=== PATIENT | male | born 1980 | race African-American/Black ===

== ENCOUNTER 2016-06-13 16:14 | Emergency (ER) | payer OTHER ==
[~2016-06-13] VITALS: Wt 127.0 kg
[~2016-06-13 16:14] MED LIST: ATARAX,VISTARIL50 MG PO; CATAFLAM50 MG PO; CLEOCIN HCL150 MG PO; CLEOCIN150 MG PO; DAYPRO600 M1 PO; EPIPEN 2-PAK1 MG/ML MR; FLAGYL500 MG PO; FLEXERIL10 MG PO; FLEXERIL5 MG PO; FLOMAX0.4 MG PO; HYDROCODONE BIT1 T11 PO; IBU800 MG PO; LEVEMIR100 U/ML SC; LISINOPRIL40 MG PO; LOMOTIL 0.025 M1 TA1 PO; LOMOTIL 0.025 M1 TAB PO; MACROBID100 M1 PO; MOTRIN800 MG PO; Motrin,Rufen800 MG PO; NAPROSYN500 MG PO; NKHM; NORCO 325 MG-51 TAB PO; PARAFON FORTE500 MG PO; PENICILLIN VK500 MG PO; PERCOCET 325 MG1 TA2 PO; PREDNISONE20 M1 PO; PRILOSEC20 MG PO; ROBAXIN750 MG PO; ROBITUSSIN AC 110 ML PO; ROBITUSSIN DM 105 ML PO; TORADOL10 MG PO; TRAMADOL HCL50 MG PO; TYLENOL W/CODEI1 TA2 PO; ULTRAM50 MG PO; VIBRAMYCIN100 MG PO; VICODIN 5/500 505 MG PO; VICODIN 500 MG-1 TAB PO; VICODIN ES 7501 TAB PO; ZOFRAN ODT4 MG SL; ZOFRAN4 MG PO
[2016-06-13 16:24] VITALS: BP 136/88
[2016-06-13] MEDS ORDERED: ZITHROMAX100 MG/5 M PO (18:04)
[2016-06-13] MEDS ORDERED: TRAMADOL HCL50 MG PO (18:08)
[2016-06-13] MEDS ORDERED: Motrin,Rufen800 MG PO (18:12)
== END 2016-06-13 18:16 | disposition home or self-care (01) ==
LOC: ED 16:14
DX: S33.5XXA Sprain of ligaments of lumbar spine, initial encounter (principal); R07.81 Pleurodynia; F17.200 Nicotine dependence, unspecified, uncomplicated; Z88.1 Allergy status to other antibiotic agents; Z88.6 Allergy status to analgesic agent; W18.39XA Other fall on same level, initial encounter; Y93.9 Activity, unspecified; Y92.9 Unspecified place or not applicable; Y99.9 Unspecified external cause status

== ENCOUNTER 2016-12-19 16:36 | Emergency (ER) | payer OTHER ==
[~2016-12-19] VITALS: Ht 182.8 cm; Wt 122.5 kg
[~2016-12-19 16:36] MED LIST changes: +ZITHROMAX100 MG/5 M PO
[2016-12-19 16:50] VITALS: BP 148/85
[2016-12-19] MEDS ORDERED: SUBOXONE 8 MG-1 EACH SL (16:52)
[2016-12-19] MEDS ORDERED: CLINDAMYCIN HC300 MG PO (17:16)
[2016-12-19] MEDS ORDERED: NAPROSYN500 MG PO (17:16)
== END 2016-12-19 17:44 | disposition home or self-care (01) ==
LOC: ED 16:36
DX: L02.415 Cutaneous abscess of right lower limb (principal); Z88.1 Allergy status to other antibiotic agents; Z88.6 Allergy status to analgesic agent; Z90.49 Acquired absence of other specified parts of digestive tract

== ENCOUNTER 2017-04-11 19:49 | Emergency (ER) | payer OTHER ==
[~2017-04-11] VITALS: Ht 180.3 cm; Wt 136.1 kg
[~2017-04-11 19:49] MED LIST changes: +CLINDAMYCIN HC300 MG PO; +SUBOXONE 8 MG-1 EACH SL
[2017-04-11 19:53] VITALS: BP 165/102
[2017-04-11] MEDS ORDERED: NAPROSYN500 MG PO (21:40)
== END 2017-04-11 21:47 | disposition home or self-care (01) ==
LOC: ED 19:49
DX: R10.12 Left upper quadrant pain (principal); F17.200 Nicotine dependence, unspecified, uncomplicated; Z88.0 Allergy status to penicillin; Z88.6 Allergy status to analgesic agent; Z88.8 Allergy status to other drugs, medicaments and biological substances; Z79.899 Other long term (current) drug therapy

== ENCOUNTER 2017-10-30 17:32 | Emergency (ER) | payer OTHER ==
[2017-10-30 17:36] VITALS: BP 168/97
[2017-10-30] MEDS ORDERED: PREDNISONE10 MG PO (17:52)
== END 2017-10-30 17:56 | disposition home or self-care (01) ==
LOC: ED 17:32
DX: L23.7 Allergic contact dermatitis due to plants, except food (principal); Z88.1 Allergy status to other antibiotic agents; Z88.5 Allergy status to narcotic agent

== ENCOUNTER 2017-12-07 15:30 | Emergency (ER) | payer OTHER ==
[~2017-12-07] VITALS: Ht 185.4 cm; Wt 136.1 kg
[~2017-12-07 15:30] MED LIST changes: +PREDNISONE10 MG PO
[2017-12-07 15:33] VITALS: BP 152/95
== END 2017-12-07 19:22 | disposition home or self-care (01) ==
LOC: ED 15:30
DX: M54.5 Low back pain (principal); M79.641 Pain in right hand; Z90.49 Acquired absence of other specified parts of digestive tract; Z98.890 Other specified postprocedural states; Z79.899 Other long term (current) drug therapy; Z88.1 Allergy status to other antibiotic agents; Z88.5 Allergy status to narcotic agent

== ENCOUNTER 2017-12-12 21:11 | Emergency (ER) | payer OTHER ==
[~2017-12-12] VITALS: Ht 185.4 cm; Wt 136.1 kg
[2017-12-12 21:11] VITALS: BP 170/90
[2017-12-12] MEDS ORDERED: Motrin,Rufen800 MG PO (21:39)
[2017-12-12] MEDS ORDERED: SILVADENE,SSD C50 GM T (22:04)
== END 2017-12-12 22:40 | disposition home or self-care (01) ==
LOC: ED 21:11
DX: T21.02XA Burn of unspecified degree of abdominal wall, initial encounter (principal); Z79.899 Other long term (current) drug therapy; Z88.1 Allergy status to other antibiotic agents; Z88.6 Allergy status to analgesic agent; X16.XXXA Contact with hot heating appliances, radiators and pipes, initial encounter; Y93.89 Activity, other specified; Y92.89 Other specified places as the place of occurrence of the external cause; Y99.8 Other external cause status

== ENCOUNTER 2017-12-19 22:09 | Emergency (ER) | payer OTHER ==
[~2017-12-19] VITALS: Wt 136.1 kg
[~2017-12-19 22:09] MED LIST changes: +SILVADENE,SSD C50 GM T
[2017-12-19 22:18] VITALS: BP 151/95
== END 2017-12-19 23:32 | disposition home or self-care (01) ==
LOC: ED 22:09
DX: S61.512A Laceration without foreign body of left wrist, initial encounter (principal); Z90.49 Acquired absence of other specified parts of digestive tract; Z79.899 Other long term (current) drug therapy; Z88.1 Allergy status to other antibiotic agents; Z88.5 Allergy status to narcotic agent; W25.XXXA Contact with sharp glass, initial encounter; Y93.89 Activity, other specified; Y92.69 Other specified industrial and construction area as the place of occurrence of the external cause; Y99.9 Unspecified external cause status

== ENCOUNTER 2018-02-28 23:47 | Emergency (ER) | payer OTHER ==
[~2018-02-28] VITALS: Ht 182.8 cm; Wt 122.5 kg
[2018-02-28 23:50] VITALS: BP 153/100
[2018-03-01] MEDS ORDERED: Motrin,Rufen800 MG PO (00:24)
== END 2018-03-01 00:40 | disposition home or self-care (01) ==
LOC: ED 23:47
DX: S62.356A Nondisplaced fracture of shaft of fifth metacarpal bone, right hand, initial encounter for closed fracture (principal); Z88.1 Allergy status to other antibiotic agents; Z88.6 Allergy status to analgesic agent; Z79.899 Other long term (current) drug therapy; W01.198A Fall on same level from slipping, tripping and stumbling with subsequent striking against other object, initial encounter; Y93.89 Activity, other specified; Y92.89 Other specified places as the place of occurrence of the external cause; Y99.8 Other external cause status

== ENCOUNTER 2018-03-09 12:27 | Emergency (ER) | payer OTHER ==
[~2018-03-09] VITALS: Ht 185.4 cm; Wt 136.1 kg
[2018-03-09 12:30] VITALS: BP 153/78
[2018-03-09] MEDS ORDERED: NAPROSYN500 MG PO (12:32)
== END 2018-03-09 13:00 | disposition home or self-care (01) ==
LOC: ED 12:27
DX: S62.326D Displaced fracture of shaft of fifth metacarpal bone, right hand, subsequent encounter for fracture with routine healing (principal); R03.0 Elevated blood-pressure reading, without diagnosis of hypertension; Z90.49 Acquired absence of other specified parts of digestive tract; Z79.899 Other long term (current) drug therapy; Z88.1 Allergy status to other antibiotic agents; Z88.5 Allergy status to narcotic agent; X58.XXXD Exposure to other specified factors, subsequent encounter

== ENCOUNTER 2018-09-18 21:35 | Inpatient (IN) | payer OTHER ==
[~2018-09-18] VITALS: Ht 182.8 cm; Wt 140.7 kg
[2018-09-18 21:37] VITALS: BP 134/89
--- NOTE | 2018-09-18 23:00 | NUR ---
unable to establish iv access
[2018-09-18 23:16] LABS: BASO % 0.3 % (0.0-1.0); EOS % 0.3 % (1.0-4.0); HEMATOCRIT 40.3 % (42.0-52.0); HEMOGLOBIN 13.7 g/dl (14.0-18.0); LYMPH # 2.1 10*3/uL (1.3-4.4); LYMPH % 29.9 % (27.0-41.0); MEAN CELL VOLUME 85.4 fl (80.0-94.0); MEAN PLATELET VOLUME 12.8 fl (9.6-12.3); MONO # 0.5 10*3/uL (0.1-1.0); MONO % 6.4 % (3.0-9.0); NEUT # 4.4 10*3/uL (2.3-7.9); NEUT % 62.8 % (47.0-73.0); RED BLOOD COUNT 4.72 10*6/uL (4.50-5.90); RED CELL DISTRI WIDTH 12.2 % (0-14.5)
[2018-09-18 23:19] LABS: BILIRUBIN NEGATIVE (NEGATIVE); BLOOD TRACE-INTACT (NEGATIVE); CLARITY CLEAR (CLEAR); COLOR YELLOW (YELLOW); GLUCOSE 3+ (NEGATIVE); KETONE 1+ (NEGATIVE); LEUKO ESTERASE NEGATIVE (NEGATIVE); NITRITE NEGATIVE (NEGATIVE); PH 5.5 (5.0-9.0); SPECIFIC GRAVITY 1.015 (1.005-1.030); UROBILINOGEN 0.2 E.U./dl (0.2-1.0)
[2018-09-18 23:32] LABS: ALBUMIN 3.9 gm/dl (3.1-4.5); ALKALINE PHOSPHATASE 66 U/L (45-117); BUN 17 mg/dl (7-24); CHLORIDE 100 mmol/L (98-107); CREATININE 1.13 mg/dL (0.70-1.30); LIPASE 179 U/L (73-393); POTASSIUM 4.6 mmol/L (3.5-5.1); SGOT/AST 40 IU/L (3-35); SGPT/ALT 79 U/L (12-78); SODIUM 135 mmol/L (136-145); TOTAL PROTEIN 9.2 gm/dL (6.4-8.2)
[2018-09-18 23:32] LABS: BACTERIA TRACE; EPITHELIAL CELLS 25-30; RBC TNTC rbc/hpf (0-2); WBC 0-2 wbc/hpf (0-5)
--- NOTE | 2018-09-18 23:41 | NUR ---
CRITICAL 527 GUSTAVO GUERRERO NOTIFIED
[2018-09-18 23:44] LABS: PLATELET COUNT AUTOMATED 119 10*3/uL (130-400)
[2018-09-19 00:59] VITALS: BP 125/51
--- NOTE | 2018-09-19 01:05 | NUR ---
SPOKE WITH ADMITTING DR ABOUT DIFFICULTY IN ESTABLISHING IV ACCESS DUE TO PT HISTORY AND SCARRING TISSUE, DR GAVE PERMISSION FOR PT ADMISSION WITHOUT IV ACCESS
--- NOTE | 2018-09-19 01:12 | NUR ---
EDWINA NICOLE DO ACCEPTING
[2018-09-19 01:20] VITALS: BP 124/62; BP 125/81
--- NOTE | 2018-09-19 01:52 | NUR ---
MED REC UP TO DATE PER PT RECALL. PATIENT A&OX3.
--- NOTE | 2018-09-19 01:57 | NUR ---
SPOKE TO REGARDING PATIENT'S BSG 442 FOLLOWING 15 UNITS SC INSULIN GIVEN IN ER. DISCUSSED ORDER FOR BSG CHECKS Q2H AND INSULIN COVERAGE PER SLIDING SCALE ORDERED ACHS. INSTRUCTED TO CHANGE INSULIN ORDER TO Q2H TO MATCH BSG CHECKS. ALSO NOTIFIED THAT 24 GAUGE IV INITIATED TO L FOREARM BY RN. DISCUSSED 1L BOLUS NOT GIVEN IN ER BECAUSE IV ACCESS COULD NOT BE OBTAINED. NEW ORDER RECEIVED FOR NS @ 100 ML/HR X1 BAG.
--- NOTE | 2018-09-19 02:38 | NUR ---
IV FLUIDS INITIATED AT 100 ML/HR PER ORDER. 14 UNITS OF SQ INSULIN ALSO GIVEN FOR BSG OF 442. PATIENT DENIES ANY NEW/WORSENING SYMPTOMS. WILL MONITOR. CALL LIGHT LEFT IN REACH.
[2018-09-19 05:56] LABS: BASO % 0.3 % (0.0-1.0); EOS % 0.6 % (1.0-4.0); HEMATOCRIT 41.3 % (42.0-52.0); HEMOGLOBIN 13.9 g/dl (14.0-18.0); LYMPH # 2.5 10*3/uL (1.3-4.4); LYMPH % 39.9 % (27.0-41.0); MEAN CELL VOLUME 87.1 fl (80.0-94.0); MEAN CORPUSCULAR HGB 29.3 pg (27.0-31.0); MEAN CORPUSCULAR HGB CONC 33.7 g/dl (33.0-37.0); MEAN PLATELET VOLUME 13.3 fl (9.6-12.3); MONO # 0.4 10*3/uL (0.1-1.0); MONO % 6.9 % (3.0-9.0); NEUT # 3.2 10*3/uL (2.3-7.9); NEUT % 52.1 % (47.0-73.0); PLATELET COUNT AUTOMATED 123 10*3/uL (130-400); RED BLOOD COUNT 4.74 10*6/uL (4.50-5.90); RED CELL DISTRI WIDTH 12.3 % (0-14.5); WHITE BLOOD COUNT 6.2 10*3/uL (4.8-10.8)
[2018-09-19 06:31] LABS: ALBUMIN 3.5 gm/dl (3.1-4.5); BUN 17 mg/dl (7-24); CHLORIDE 102 mmol/L (98-107); CHOLESTEROL 98 mg/dL (<200); CREATININE 0.92 mg/dL (0.70-1.30); PHOSPHOROUS 3.9 mg/dL (2.5-4.9); SGOT/AST 34 IU/L (3-35); SGPT/ALT 74 U/L (12-78); TRIGLYCERIDES 143 mg/dl (<150); VLDL CHOLESTEROL 29 mg/dL (6-40)
[2018-09-19 06:35] LABS: VITAMIN D, 25-HYDROXY 13.4 ng/mL (30-100)
[2018-09-19 06:39] LABS: ALKALINE PHOSPHATASE 62 U/L (45-117); HDL CHOLESTEROL 23 mg/dl (40-60); LDL CHOLESTEROL 46 mg/dL (9-159); TOTAL PROTEIN 8.6 gm/dL (6.4-8.2)
[2018-09-19 06:44] LABS: SODIUM 138 mmol/L (136-145)
[2018-09-19 06:45] LABS: POTASSIUM 3.6 mmol/L (3.5-5.1)
[2018-09-19 08:00] VITALS: BP 124/62
--- NOTE | 2018-09-19 08:13 | NUR ---
NOTIFIED REGARDING 8AM BSG. OKAY TO CHANGE BLOOD SUGAR CHECKS TO ACHS.
--- NOTE | 2018-09-19 09:00 | NUR ---
Is Manager in to talk to patient. Patient states lives at home with and family. There are few steps in the home. Physician: none [facility] Home health services: none Patient's level of ADLs: INDEPENDENT Patient has working utilities: all working DME: none Follow-up physician's appointment after d/c: will be made by hospitalist nurse director upon discharge Does patient want to access PORTAL?: no Discharge plan discussed with patient, present, patient lives at home with and family, he is independent in adls and ambulation, patient states he will be going home when able, discussed with him not having a family doctor and educated him that a list would be provided for him to choose a doctor to follow up with, patient verbalized understand, patient and deny any other home needs. ANNA HOWELL
--- NOTE | 2018-09-19 09:46 | NUR ---
PT C/O SLIGHTLY BLURRED VISION. BSG CHECKED AT THIS TIME. BLOOD SUGAR 182. VSS. WILL CONTINUE TO MONITOR.
--- NOTE | 2018-09-19 11:27 | NUR ---
PT GIVEN PO MOTRIN PER PRN ORDER FOR C/O HEADACHE. WILL MONITOR EFFECTIVENESS.
[2018-09-19 12:00] VITALS: BP 124/62
--- NOTE | 2018-09-19 12:30 | NUR ---
MOTRIN EFFECTIVE PER PT.
[2018-09-19 16:00] VITALS: BP 144/74
--- NOTE | 2018-09-19 17:19 | NUR ---
PT MEDICATED WITH PO TYLENOL PER PRN ORDER FOR C/O HEADACHE. WILL MONITOR EFFECTIVENESS.
[2018-09-19 20:00] VITALS: BP 149/75
[2018-09-20] VITALS: BP 121/63
--- NOTE | 2018-09-20 00:45 | NUR ---
PATIENT MEDICATED WITH PRN MOTRIN ORDERED FOR C/O BILATERAL LEG PAIN.
[2018-09-20 08:00] VITALS: BP 137/69
--- NOTE | 2018-09-20 08:19 | NUR ---
NOTIFIED REGARDING REFUSAL OF AM LABS.
--- NOTE | 2018-09-20 08:41 | NUR ---
Spoke with patient and provided an 1800 calorie diabetic diet copy. Encouraged patient to follow the diet and the importance of testing BGs before and after meals. Told patient he can direct any further questions to myself or Selena Francisco RDN,DAQUAN. Esther Lester [facility] Dietetic Student
--- NOTE | 2018-09-20 09:30 | NUR ---
case management visits with patient, aptient denies any needs at this time
[2018-09-20 10:28] LABS: BUN 21 mg/dl (7-24); CHLORIDE 103 mmol/L (98-107); CREATININE 1.14 mg/dL (0.70-1.30); SODIUM 134 mmol/L (136-145)
[2018-09-20 10:29] LABS: POTASSIUM 5.3 mmol/L (3.5-5.1)
[2018-09-20] MEDS ORDERED: Humalog SQ (14:25)
[2018-09-20] MEDS ORDERED: LANTUS SOL100 UNIT/1 SC (14:26)
[2018-09-20] MEDS ORDERED: TEST STRIPS1 EACH MC (14:26)
[2018-09-20] MEDS ORDERED: VITAMIN D32000 UNI1 PO (14:26)
[2018-09-20] MEDS ORDERED: BD ULTRA-FINE1 EAC3 MC (14:26)
[2018-09-20] MEDS ORDERED: ACCU-CHEK FAST1 EACH MC (14:26)
--- NOTE | 2018-09-20 15:19 | NUR ---
SCRIPTS SENT TO PHARMACY AT THIS TIME.
--- NOTE | 2018-09-20 15:59 | NUR ---
Discharge instructions reviewed with patient/family. Patient receptive and verbalizes understanding. Follow-up care arranged. Written instructions given to patient/family. KEEGAN PAGE.
== END 2018-09-20 15:59 | disposition home or self-care (01) | DRG 638 ==
LOC: ED 21:35 → EDHOLD 09-19 00:10 → 4E 09-19 00:10
PROVIDERS: Internal Medicine; Nurse Practitioner Family; Student in an Organized Health Care Education/Training Program; ADMIT Internal Medicine
DX: E11.65 Type 2 diabetes mellitus with hyperglycemia (principal); E87.1 Hypo-osmolality and hyponatremia; Z68.41 Body mass index [BMI] 40.0-44.9, adult; N48.1 Balanitis; E66.01 Morbid (severe) obesity due to excess calories; D69.6 Thrombocytopenia, unspecified; D64.9 Anemia, unspecified; R74.0 Nonspecific elevation of levels of transaminase and lactic acid dehydrogenase [LDH]; F17.210 Nicotine dependence, cigarettes, uncomplicated; R35.8 Other polyuria; E55.9 Vitamin D deficiency, unspecified; Z90.49 Acquired absence of other specified parts of digestive tract; Z82.49 Family history of ischemic heart disease and other diseases of the circulatory system; Z80.0 Family history of malignant neoplasm of digestive organs; Z71.6 Tobacco abuse counseling; Z88.1 Allergy status to other antibiotic agents; Z91.14 Patient's other noncompliance with medication regimen; Z83.3 Family history of diabetes mellitus; Z88.5 Allergy status to narcotic agent; Z79.899 Other long term (current) drug therapy

== ENCOUNTER 2019-02-28 10:09 | Emergency (ER) | payer OTHER ==
[~2019-02-28] VITALS: Ht 182.8 cm; Wt 143.3 kg
[~2019-02-28 10:09] MED LIST changes: +ACCU-CHEK FAST1 EACH MC; +BD ULTRA-FINE1 EAC3 MC; +Humalog SQ; +LANTUS SOL100 UNIT/1 SC; +TEST STRIPS1 EACH MC; +VITAMIN D32000 UNI1 PO
[2019-02-28 10:12] VITALS: BP 160/97
[2019-02-28] MEDS ORDERED: DOXYCYCLINE100 M3 PO (10:42)
[2019-02-28] MEDS ORDERED: IBU800 MG PO (10:42)
[2019-02-28] MEDS ORDERED: ANTIBIOTIC28.4 GM T (10:42)
== END 2019-02-28 10:53 | disposition home or self-care (01) ==
LOC: ED 10:09
DX: L02.511 Cutaneous abscess of right hand (principal); F17.200 Nicotine dependence, unspecified, uncomplicated; Z88.1 Allergy status to other antibiotic agents; Z88.6 Allergy status to analgesic agent; Z79.899 Other long term (current) drug therapy

== ENCOUNTER 2019-11-16 16:36 | Emergency (ER) | payer OTHER ==
[~2019-11-16] VITALS: Ht 185.4 cm; Wt 140.6 kg
[~2019-11-16 16:36] MED LIST changes: +ANTIBIOTIC28.4 GM T; +DOXYCYCLINE100 M3 PO
[2019-11-16 16:44] VITALS: BP 160/103
[2019-11-16] MEDS ORDERED: CLEOCIN HCL150 MG PO (17:25)
[2019-11-16] MEDS ORDERED: IBU800 MG PO (17:25)
== END 2019-11-16 17:56 | disposition home or self-care (01) ==
LOC: ED 16:36
DX: L02.414 Cutaneous abscess of left upper limb (principal); I10 Essential (primary) hypertension; J45.909 Unspecified asthma, uncomplicated; E11.9 Type 2 diabetes mellitus without complications; Z88.0 Allergy status to penicillin; Z88.1 Allergy status to other antibiotic agents; Z79.899 Other long term (current) drug therapy; Z87.891 Personal history of nicotine dependence

== ENCOUNTER 2019-11-18 00:30 | Inpatient (IN) | payer OTHER ==
[~2019-11-18] VITALS: Ht 185.4 cm; Wt 145.8 kg
[2019-11-18 01:26] VITALS: BP 127/72
--- NOTE | 2019-11-18 02:00 | NUR ---
PATIENT ABSCESS I&D DONE BY DR COOL, THIS RN WAS UNABLE TO PHOTO PRIOR TO I&D AND DR COOL STATES HE ALREADY DRESSED THE WOUND AT THIS TIME AND STATES NO PHOTO TO BE TAKEN DO TO WOUND BEING DRESSED AT THIS TIME.
[2019-11-18 02:28] LABS: BASO % 0.2 % (0.0-1.0); EOS % 0.3 % (1.0-4.0); HEMATOCRIT 34.3 % (42.0-52.0); LYMPH # 1.9 10*3/uL (1.3-4.4); MEAN CELL VOLUME 89.6 fl (80.0-94.0); MEAN CORPUSCULAR HGB 29.2 pg (27.0-31.0); MEAN CORPUSCULAR HGB CONC 32.7 g/dl (33.0-37.0); MEAN PLATELET VOLUME 11.6 fl (9.6-12.3); MONO # 0.6 10*3/uL (0.1-1.0); MONO % 9.2 % (3.0-9.0); NEUT # 3.7 10*3/uL (2.3-7.9); NEUT % 60.1 % (47.0-73.0); PLATELET COUNT AUTOMATED 114 10*3/uL (130-400); RED BLOOD COUNT 3.83 10*6/uL (4.50-5.90); RED CELL DISTRI WIDTH 12.9 % (0-14.5); WHITE BLOOD COUNT 6.2 10*3/uL (4.8-10.8)
[2019-11-18 02:48] LABS: ALBUMIN 2.8 gm/dl (3.1-4.5); ALKALINE PHOSPHATASE 42 U/L (45-117); BUN 12 mg/dl (7-24); CHLORIDE 105 mmol/L (98-107); CREATININE 0.83 mg/dL (0.70-1.30); POTASSIUM 3.8 mmol/L (3.5-5.1); SGOT/AST 15 IU/L (3-35); SGPT/ALT 38 U/L (12-78); SODIUM 139 mmol/L (136-145); TOTAL PROTEIN 7.1 gm/dL (6.4-8.2)
[2019-11-18 04:15] VITALS: BP 148/76
--- NOTE | 2019-11-18 04:15 | NUR ---
Time: 414 A 39 year old MALE admitted to 5E under services of EDWINA SORIANO DO. Pt. arrived via bed from ER. Chief complaint: ABSCESS. VANESSA HERRERA J
[2019-11-18] MEDS ORDERED: LANTUS SOL100 UNIT/1 SC (04:28)
[2019-11-18] MEDS ORDERED: Motrin,Rufen800 MG PO (04:32)
--- NOTE | 2019-11-18 05:02 | NUR ---
NOTIFIED DR. HAN THAT PATIENT HAD WOUND LANCED IN ER. SHE STATED THAT THE PATIENT WAS JUST BEING ADMITTED FOR OVERNIGHT ANTIBIOTICS ANYWAYS. ADMISSION ORDERS RECIEVED FROM DR. HAN FOR BLOOD SUGAR CHECKS SINCE PATIENT IS DIABETIC, [facility] TO DOSE AND [facility] TO DOSE. NOTIFIED HER PATIENT IS ALLERGIC TO PCN AND AUGMENTIN AND IF SHE WANTED TO GO AHEAD WITH THE MERREPENUM AND SHE STATED IT WAS OK TO PUT IT ON.
--- NOTE | 2019-11-18 05:26 | NUR ---
MED REC UPDATED PER PATIENT. PATIENT ABLE TO STATE ALL MEDICATIONS HE TAKES AT HOME
--- NOTE | 2019-11-18 05:45 | NUR ---
CALLED AND SPOKE WITH AT THIS TIME ABOUT [facility] BEING DOSED 500MG FOLLWED BY ANOTHER 500MG DOSE AND ASKED IF IT COULD BE CHANGED TO 1G THAT IS WHAT THE CHEMICAL DEPENDENCY NURSE HAD. TIKA STATED THAT SHE WOULD SPEAK WITH THE PHARMACIST AND SEE IF IT CAN BE CHANGED
--- NOTE | 2019-11-18 06:29 | NUR ---
HUI ASHLEY III [id number] Please refer to the physician's history and physical for past medical history, comorbid conditions, and allergies. Diagnosis: CELLULITIS AND ABSCESS OF UPPER EXTREMITY Marshall Score: 22,LOW OR NO RISK WOUND DESCRIPTIONS: Wound Number: 1 Location of the wound: left forarm Type of wound: insect bite Thickness: Full Size: 2.5cm x 0.9cm x >0.1c unable to determine to due pain Tunneling: unknown Undermining: unknown Sinus Tract: unknown Presence of Exudate: Serousanguineous Amount: Moderate Color: Red, purple Odor: None Periwound Skin Appearance: Erythema 23.0cm x 15cm, warmth, edema, firmness Wound edges: approximated Pain (associated with wound): very tender to touch How does patient state this happened? pt stated he was bit by a spider 5 days ago and came to er received antibiotic and came back because area was getting worse Surface the patient is resting on: Isoflex SKIN PREVENTION RECOMMENDATION: 1. Pressure redistribution support surface as appropriate 2. Elevate heels 3. Remove boots/TEDS every shift and reapply 4. Head of bed 30 degrees as tolerated 5. Assess nutrition and hydration 6. Manage moisture 7. Avoid the use of containment devices while in bed 8. Use absorptive products on surfaces limit layers of linens on bed 9. Turn and reposition every 1-2 hours in bed and every 1 hour in chair as tolerated 10. Weight shifts every 15 minutes while up in chair 11. Offloading with pillows or device to keep heels elevated off bed 12. Monitor skin at least every shift 13. Inspect under medical devices twice a day WOUND TREATMENT RECOMMENDATIONS: Dressing changes: Cleanse left forearm with nss and apply sureprep around the wound lightly pack with maxorb rope and cover with dry sterile dressing daily and prn for soiling. Patient states if he needs to follow up in an outpatient setting he will make his appointment in the wound care center appointment card given with number so he can schedule appointment.
--- NOTE | 2019-11-18 06:32 | NUR ---
PATIENT STATES THAT HE WILL CHECK HIS GLUCOSE HIMSELF A LITTLE LATER
--- NOTE | 2019-11-18 06:35 | NUR ---
DSD appilied to left forearm at this time. Tolerated activity well. Pending physician order.
[2019-11-18 08:00] VITALS: BP 138/80
--- NOTE | 2019-11-18 08:12 | NUR ---
PATIENTS HOME MEDICATIONS SENT TO PHARMACY
--- NOTE | 2019-11-18 10:30 | NUR ---
Melissa RAMIREZ notified of wound care recommendations
--- NOTE | 2019-11-18 11:12 | NUR ---
PATIENT SLEEPING, RESPIRATIONS EASY, NON LABORED. DRESSING INTACT. WILL CONTINUE TO MONITOR.
[2019-11-18 12:00] VITALS: BP 142/84
--- NOTE | 2019-11-18 14:02 | NUR ---
PATIENT WOUND DRESSING SOILED. DRESSING CHANGED. PATIENT REQUESTING SOMETHING FOR PAIN. NOTIFIED ERIC RUBIO. TORADOL ORDERED.
--- NOTE | 2019-11-18 14:15 | NUR ---
PATIENT MEDICATED WITH TORADOL. RATES PAIN 5/10. WILL CHECK EFFECTIVENESS.
[2019-11-18 16:00] VITALS: BP 132/76
[2019-11-18 20:00] VITALS: BP 145/86
--- NOTE | 2019-11-18 20:38 | NUR ---
PT. REQUESTING PAIN MEDICATION.
--- NOTE | 2019-11-18 20:48 | NUR ---
DR. OVALLES STATED THAT PATIENT HAS ALREADY HAD TORADOL & COULD NOT HAVE ANY MORE TORADOL NOR MOTRIN.
--- NOTE | 2019-11-18 21:11 | NUR ---
MEDICATED WITH TYLENOL FOR C/O LEFT ARM PAIN. DRESSING CHANGE ALSO DONE.
[2019-11-19] VITALS: BP 142/82
--- NOTE | 2019-11-19 | NUR ---
PATIENT IS SLEEPING, AWAKENS EASILY FOR ASSESSMENT. ASSESSMENT COMPLETE WITH NO C/O OR S/S OF DISTRESS NOTED AT THIS TIME. BED IS LOW, LOCKED, AND CALL LIGHT IS WITHIN REACH, WILL CONTINUE TO MONITOR. SEE INTERVENTIONS SCREEN.
--- NOTE | 2019-11-19 00:56 | NUR ---
CHART CHECK COMPLETE.
--- NOTE | 2019-11-19 06:15 | NUR ---
Dressing changed to left foream patient refused area to be packed at this time. Patient states area isn't deep. Unable to determine depth of area since patient refused depth measurement at this time. Patient only wants dressing on top of area. He states his body heals from the inside out and is healing fine at this time. Nurse caring for patient Holden RN at bedside with this nurse during dressing change. Patient explained the importance of the wound healing from the inside out and he cotninues to refused depth assessment as well as packing at this time. Call light within reach and bed in low position.
--- NOTE | 2019-11-19 06:17 | NUR ---
WOUNDCARE RN CRYSTAL IN TO CHANGE PATIENTS DRESSING. PATIENT REFUSED DRESSING TO BE PACKED STATING "I DONT KNOW WHY YOU GUYS WANT TO CAUSE ME PAIN. IF YOU STICK SOMETHING IN THAT IT IS GOING TO CAUSE ME PAIN, AND I CAN GET ANYTHING BUT TYLENOL." DRESSING CHANGED WITH NO PACKING BY WOUNDCARE RN. BED IS LOW, LOCKED, AND CALL LIGHT IS WITHIN REACH. BESDSIDE GLUCOSE 120. WILL CONTINUE TO MONITOR.
[2019-11-19 08:00] VITALS: BP 137/71
--- NOTE | 2019-11-19 08:50 | NUR ---
Spoke with Dr. Horn he states he will see the patient this afternoon.
--- NOTE | 2019-11-19 08:55 | NUR ---
DR JIMENEZ NOTIFIED PER GUSTAVO JACKSON REGARDING WOUND TO LEFT ARM.PER GUSTAVO , DR JIMENEZ WILL SEE PT THIS AFTERNOON.
[2019-11-19 10:19] LABS: BASO % 0.5 % (0.0-1.0); EOS % 0.5 % (1.0-4.0); LYMPH # 1.2 10*3/uL (1.3-4.4); LYMPH % 30.6 % (27.0-41.0); MEAN CELL VOLUME 87.4 fl (80.0-94.0); MEAN CORPUSCULAR HGB 28.5 pg (27.0-31.0); MEAN CORPUSCULAR HGB CONC 32.6 g/dl (33.0-37.0); MEAN PLATELET VOLUME 12.9 fl (9.6-12.3); MONO # 0.2 10*3/uL (0.1-1.0); MONO % 5.4 % (3.0-9.0); NEUT # 2.5 10*3/uL (2.3-7.9); NEUT % 62.7 % (47.0-73.0); PLATELET COUNT AUTOMATED 112 10*3/uL (130-400); RED BLOOD COUNT 3.89 10*6/uL (4.50-5.90); RED CELL DISTRI WIDTH 12.7 % (0-14.5); WHITE BLOOD COUNT 3.9 10*3/uL (4.8-10.8)
[2019-11-19 10:41] LABS: ALBUMIN 2.5 gm/dl (3.1-4.5); ALKALINE PHOSPHATASE 39 U/L (45-117); BUN 7 mg/dl (7-24); CHLORIDE 108 mmol/L (98-107); CHOLESTEROL 92 mg/dL (<200); CREATININE 0.53 mg/dL (0.70-1.30); HDL CHOLESTEROL 26 mg/dl (40-60); LDL CHOLESTEROL 50 mg/dL (9-159); SGOT/AST 32 IU/L (3-35); SGPT/ALT 41 U/L (12-78); SODIUM 138 mmol/L (136-145); TRIGLYCERIDES 78 mg/dl (<150); VLDL CHOLESTEROL 16 mg/dL (6-40)
[2019-11-19 10:46] LABS: THYROID STIM HORMONE (HS) 0.689 uIU/ml (0.358-4.75)
[2019-11-19 11:32] LABS: VITAMIN D, 25-HYDROXY 25.1 ng/mL (30-100)
--- NOTE | 2019-11-19 11:48 | NUR ---
Street Sweeper Operator in to talk to patient. Patient states lives at HOME with ALONE. There are 10 steps in the home. Physician: STATES HE WAS SEEING CAMILO SEGOVIA BUT SHE IS NOT IN OFFICE ANYMORE AND HE IS NOT SURE WHO TOOK HER PLACE [facility]: [facility] Home health services: NONE Patient's level of ADLs: INDEPENDENT Patient has working utilities: YES DME: NONE Follow-up physician's appointment after d/c: WILL BE MADE BY HOSPITALIST NURSE DIRECTOR ON DISCHARGE Does patient want to access PORTAL?: NO Discharge plan PT LIVES AT HOME ALONE AND IS INDEPENDENT IN HIS CARE. DENIES HE WILL HAVE ANY NEEDS ON DISCHARGE. STATES HE IS GOING TO HIS WIFES HOUSE TO STAY FOR AWHILE SO SHE CAN HELP HIM WITH DRESSING CHANGES. WILL CONTINUE TO FOLLOW. STATES HE WILL HAVE A RIDE WHEN DISCHARGED.. RAEANN PARRY
[2019-11-19 12:00] VITALS: BP 142/79
--- NOTE | 2019-11-19 12:19 | NUR ---
Nutritional Support Services Note: Appetite is good for meals. Ht.6'1 Wt.321#. 1800cal diet as ordered. Cellulitis and abscess to elbow. Continue to encourage 100% of meals. No other Nutrition intervention needed at this time. Will follow as needed. Selena Francisco Rdn Ld
[2019-11-19] MEDS ORDERED: LISINOPRIL10 M1 PO (14:48)
--- NOTE | 2019-11-19 16:19 | NUR ---
DISCHARGE WOUNDCARE PHOTOS COMPLETED PER PROTOCOL AND DRESSING APPLIED PER PHYSICIAN ORDER. PT TOLERATED WELL. VOICED NO OTHER NEEDS.
--- NOTE | 2019-11-19 16:20 | NUR ---
Discharge instructions reviewed with patient/family. Patient receptive and verbalizes understanding. Follow-up care arranged. Written instructions given to patient/family. PRASANTH SCHWARZ
== END 2019-11-19 16:20 | disposition home or self-care (01) | DRG 364 ==
LOC: ED 00:30 → 5E 03:13 → EDHOLD 03:13 → 5E 03:41
PROVIDERS: Emergency Medicine; Registered Nurse; ADMIT Internal Medicine
PROC: 0J9H0ZZ Drainage of Left Lower Arm Subcutaneous Tissue and Fascia, Open Approach (ICD-10-PCS; principal; 2019-11-18)
DX: L03.114 Cellulitis of left upper limb (principal); E66.01 Morbid (severe) obesity due to excess calories; I10 Essential (primary) hypertension; L02.414 Cutaneous abscess of left upper limb; E43 Unspecified severe protein-calorie malnutrition; E11.65 Type 2 diabetes mellitus with hyperglycemia; D64.9 Anemia, unspecified; F11.11 Opioid abuse, in remission; D69.6 Thrombocytopenia, unspecified; Z88.0 Allergy status to penicillin; Z88.5 Allergy status to narcotic agent; Z88.8 Allergy status to other drugs, medicaments and biological substances; Z68.41 Body mass index [BMI] 40.0-44.9, adult; Z72.0 Tobacco use; Z90.49 Acquired absence of other specified parts of digestive tract; Z88.3 Allergy status to other anti-infective agents; Z80.0 Family history of malignant neoplasm of digestive organs; Z82.49 Family history of ischemic heart disease and other diseases of the circulatory system; Z79.899 Other long term (current) drug therapy; Z79.4 Long term (current) use of insulin

== ENCOUNTER 2020-03-25 13:12 | Emergency (ER) | payer OTHER ==
[~2020-03-25] VITALS: Ht 185.4 cm; Wt 136.1 kg
[~2020-03-25 13:12] MED LIST changes: +LISINOPRIL10 M1 PO
[2020-03-25 13:46] VITALS: BP 124/81
== END 2020-03-25 14:15 | disposition left against medical advice (07) ==
LOC: ED 13:12
DX: M25.561 Pain in right knee (principal); Z53.21 Procedure and treatment not carried out due to patient leaving prior to being seen by health care provider

== ENCOUNTER 2020-04-05 14:28 | Emergency (ER) | payer OTHER ==
[~2020-04-05] VITALS: Ht 185.4 cm; Wt 98.9 kg
[2020-04-05 14:42] VITALS: BP 124/82
[2020-04-05] MEDS ORDERED: IBUPROFEN600 MG PO (16:19)
[2020-04-05] MEDS ORDERED: Motrin,Rufen800 MG PO (16:58)
== END 2020-04-05 16:40 | disposition home or self-care (01) ==
LOC: ED 14:28
DX: S83.91XA Sprain of unspecified site of right knee, initial encounter (principal); Z88.0 Allergy status to penicillin; Z88.1 Allergy status to other antibiotic agents; Z88.8 Allergy status to other drugs, medicaments and biological substances; Z79.899 Other long term (current) drug therapy; Z79.4 Long term (current) use of insulin; X58.XXXA Exposure to other specified factors, initial encounter; Y93.89 Activity, other specified; Y92.89 Other specified places as the place of occurrence of the external cause; Y99.8 Other external cause status

== ENCOUNTER 2022-04-02 15:53 | Emergency (ER) | payer OTHER ==
[~2022-04-02] VITALS: Ht 185.4 cm; Wt 142.9 kg
[~2022-04-02 15:53] MED LIST changes: +IBUPROFEN600 MG PO
[2022-04-02 16:10] VITALS: BP 142/93
[2022-04-02] MEDS ORDERED: PREDNISONE10 MG PO (16:19)
== END 2022-04-02 16:30 | disposition home or self-care (01) ==
LOC: ED 15:53
DX: L23.9 Allergic contact dermatitis, unspecified cause (principal); Z88.0 Allergy status to penicillin; Z88.1 Allergy status to other antibiotic agents; Z88.8 Allergy status to other drugs, medicaments and biological substances; Z79.899 Other long term (current) drug therapy; Z90.49 Acquired absence of other specified parts of digestive tract

== ENCOUNTER 2022-11-19 14:51 | Emergency (ER) | payer OTHER ==
[~2022-11-19] VITALS: Ht 182.8 cm; Wt 136.1 kg
[2022-11-19] MEDS ORDERED: LISINOPRIL20 MG PO (15:19)
[2022-11-19] MEDS ORDERED: NEURONTIN300 MG PO (15:20)
[2022-11-19] MEDS ORDERED: TRULICITY0.75 MG/0. SC (15:20)
[2022-11-19] MEDS ORDERED: PREDNISONE20 M1 PO (15:33)
[2022-11-19] MEDS ORDERED: TRIAMCINOLONE430 GM TD (15:33)
[2022-11-19 15:48] VITALS: BP 174/90
== END 2022-11-19 15:48 | disposition home or self-care (01) ==
LOC: ED 14:51
DX: L23.7 Allergic contact dermatitis due to plants, except food (principal); I10 Essential (primary) hypertension; J45.909 Unspecified asthma, uncomplicated; E11.9 Type 2 diabetes mellitus without complications; F31.9 Bipolar disorder, unspecified; Z88.1 Allergy status to other antibiotic agents; Z88.0 Allergy status to penicillin; Z88.5 Allergy status to narcotic agent; Z88.8 Allergy status to other drugs, medicaments and biological substances; Z90.49 Acquired absence of other specified parts of digestive tract; Z98.890 Other specified postprocedural states; F17.200 Nicotine dependence, unspecified, uncomplicated; F12.10 Cannabis abuse, uncomplicated

== ENCOUNTER 2023-01-08 20:20 | Emergency (ER) | payer OTHER ==
[~2023-01-08] VITALS: Ht 182.8 cm; Wt 122.5 kg
[~2023-01-08 20:20] MED LIST changes: +LISINOPRIL20 MG PO; +NEURONTIN300 MG PO; +TRIAMCINOLONE430 GM TD; +TRULICITY0.75 MG/0. SC
[2023-01-08 20:24] VITALS: BP 154/100
== END 2023-01-08 21:12 | disposition left against medical advice (07) ==
LOC: ED 20:20
DX: M54.2 Cervicalgia (principal); I10 Essential (primary) hypertension; J45.909 Unspecified asthma, uncomplicated; E11.9 Type 2 diabetes mellitus without complications; F31.9 Bipolar disorder, unspecified; Z88.0 Allergy status to penicillin; Z88.1 Allergy status to other antibiotic agents; Z88.5 Allergy status to narcotic agent; Z88.8 Allergy status to other drugs, medicaments and biological substances; Z90.49 Acquired absence of other specified parts of digestive tract; Z98.890 Other specified postprocedural states; F17.200 Nicotine dependence, unspecified, uncomplicated; F12.10 Cannabis abuse, uncomplicated; V89.2XXA Person injured in unspecified motor-vehicle accident, traffic, initial encounter; Y93.89 Activity, other specified; Y92.89 Other specified places as the place of occurrence of the external cause; Y99.8 Other external cause status